=== PATIENT | female | born 1955 | race African-American/Black ===

== ENCOUNTER → 2019-01-25 | Outpatient (CLI) | payer MEDICARE ==
[~2019-01-25] MED LIST: ACET325T82 PO; AMLO5TAB13 PO; CARV12.544 PO; DIAZ10TA3 PO; INSU1.2I SC; LACT10SO66 PO; LORA-654 PO; METH2.5T3 PO; OXY10CRT PO; PANT1INJ3 PO; PROM25TA5 PO
[2019-01-25 13:26] LABS: BUN/Creatinine Ratio 12.6; Potassium 3.9 mmol/L (3.5-5.1)
== END | disposition home or self-care (01) ==
LOC: LAB 12:16
PROVIDERS: ATTEND Internal Medicine
DX: I11.0 Hypertensive heart disease with heart failure (principal); I50.9 Heart failure, unspecified
CPT/HCPCS: 36415; 80048; 83880

== ENCOUNTER → 2019-03-08 | Outpatient (CLI) | payer MEDICARE ==
[~2019-03-08] MED LIST changes: -AMLO5TAB13 PO; +AMLO5TAB15 PO; +FURO20TA3 PO; -LACT10SO66 PO; +LACT10SO70 PO; -LORA-654 PO; +LORA0.5T12 PO; +LOSA-69 PO
[2019-03-08 12:15] LABS: Potassium 4.2 mmol/L (3.5-5.1)
[2019-03-08 12:23] LABS: BUN/Creatinine Ratio 11.4; Calcium 8.4 mg/dL (8.5-10.1); Magnesium 2.1 mg/dL (1.6-2.6)
== END | disposition home or self-care (01) ==
LOC: LAB 10:37
PROVIDERS: ATTEND Internal Medicine
DX: D86.9 Sarcoidosis, unspecified (principal); E11.9 Type 2 diabetes mellitus without complications; E78.5 Hyperlipidemia, unspecified
CPT/HCPCS: 36415; 80048; 82043; 83735

== ENCOUNTER → 2019-03-08 | Outpatient (CLI) | payer MEDICARE | END | disposition home or self-care (01) | LOC: XYW 11:06 | PROVIDERS: ATTEND Internal Medicine | DX: I07.1 Rheumatic tricuspid insufficiency (principal); I11.0 Hypertensive heart disease with heart failure; I50.9 Heart failure, unspecified | CPT/HCPCS: 93306 ==

== ENCOUNTER 2019-03-28 12:10 | Inpatient (IN) | payer MEDICARE, MEDICAID ==
[~2019-03-28] VITALS: Ht 157.5 cm; Wt 80.0 kg
[~2019-03-28 12:10] MED LIST changes: -ACET325T82 PO; -OXY10CRT PO
[2019-03-28 13:33] LABS: Basophils # (auto) 0.1 uL; Basophils % (auto) 0.5 % (0.0-2.0); Eosinophils # (auto) 0.2 uL; Eosinophils % (auto) 0.7 % (0.0-7.0); Hematocrit 31.3 % (36.0-46.0); Hemoglobin 10.1 g/dL (12.2-16.2); Lymphocytes # (auto) 1.4 uL; Lymphocytes % (auto) 6.4 % (10.0-50.0); Mean Corpuscular Hemoglobin 27.9 pg (28.0-32.0); Mean Corpuscular Hgb Conc. 32.2 g/dL (32.0-36.0); Mean Corpuscular Volume 86.5 fL (80.0-100.0); Monocytes # (auto) 0.9 uL; Monocytes % (auto) 4.2 % (0.0-12.0); Neutrophils # (auto) 19.6 uL; Neutrophils % (auto) 88.2 % (37.0-80.0); Platelet Count (auto) 207 10^3/uL (140-450); Red Blood Cells 3.62 10^6/uL (4.0-5.20); Red Cell Distribution Width 13.9 % (11.8-14.3); White Blood Cell 22.3 10^3/uL (4.4-10.8)
[2019-03-28 13:50] LABS: INR < 0.93 (0.9-1.15); Partial Thromboplastin Time 23.1 sec (23.64-32.05)
[2019-03-28 13:58] LABS: Alanine Aminotransferase 21 U/L (13-56); Albumin 2.3 g/dL (3.4-5.0); Anion Gap 9 (5-15); Aspartate Aminotransferase 17 U/L (15-37); Blood Urea Nitrogen 44 mg/dL (7-18); Calcium 7.9 mg/dL (8.5-10.1); Carbon Dioxide 22 mmol/L (21-32); Chloride 107 mmol/L (98-107); Glucose 309 mg/dL (74-106); Potassium 4.4 mmol/L (3.5-5.1); Sodium 138 mmol/L (136-145)
[2019-03-28 14:03] LABS: Alkaline Phosphatase 188 U/L (45-117); BUN/Creatinine Ratio 17.5; Bilirubin, Total 0.2 mg/dL (0.2-1.0); GFR African American 25 mL/min; GFR Non-African American 21 mL/min; Total Protein 6.1 g/dL (6.4-8.2)
[2019-03-28] MEDS ORDERED: MORPHINE SULFATE 4 MG/ML SYR/VIAL IV PRN (15:15)
[2019-03-28] MEDS ORDERED: ONDANSETRON HCL 4 MG/2 ML VIAL IV PRN (15:15)
[2019-03-28] MEDS ORDERED: cefTRIAXone 1GM/50ML D5W 50 ML IV ONE (15:15)
[2019-03-28] MEDS ORDERED: FUROSEMIDE 40 MG/4 ML VIAL IV ONE (15:15)
[2019-03-28] MEDS ORDERED: HYDROcodone-ACET 5/325MG TAB PO PRN (15:15)
[2019-03-28] MEDS ORDERED: MORPHINE SULF INJ 2 MG/ML SYRINGE 1ML IV PRN (15:15)
[2019-03-28] MEDS ORDERED: DEXTROSE (50%) 50ML SYRG IV PRN (15:15)
[2019-03-28] MEDS ORDERED: NITROGLYCERIN 0.4 MG SL TAB SL PRN (15:15)
[2019-03-28 17:11] LABS: Urine Bacteria NONE SEEN /hpf (None Seen); Urine Blood TRACE /uL (Negative); Urine Specific Gravity 1.005 (1.001-1.035); Urine WBC 1 /hpf (0 - 5)
[2019-03-28] MEDS: ACCU-CHEK COMFORT CURVE STRIP VI SCH ×2 (17:11→22:00)
[2019-03-28] MEDS: InsuLIN REG 1unit/0.01ml Soln (100units/ml) SC SCH ×2 (17:16→22:00)
[2019-03-28] MEDS: IPRATROPIUM BROM 0.5 MG/2.5ML INH SOL NEB SCH (18:10)
[2019-03-28] MEDS: ALBUTEROL SULF 2.5 MG/0.5ML(0.5%) NEB SOLN NEB SCH (18:10)
[2019-03-28] MEDS: CARVEDILOL 3.125 MG TAB PO SCH (22:00)
[2019-03-29] VITALS (7 sets, daily range): BP systolic 119–154; BP diastolic 67–78
[2019-03-29 04:34] LABS: Basophils # (auto) 0.1 uL; Basophils % (auto) 0.4 % (0.0-2.0); Eosinophils # (auto) 0.1 uL; Eosinophils % (auto) 0.8 % (0.0-7.0); Hematocrit 29.9 % (36.0-46.0); Hemoglobin 9.9 g/dL (12.2-16.2); Lymphocytes # (auto) 3.1 uL; Lymphocytes % (auto) 17.4 % (10.0-50.0); Mean Corpuscular Hemoglobin 28.9 pg (28.0-32.0); Mean Corpuscular Hgb Conc. 33.1 g/dL (32.0-36.0); Mean Corpuscular Volume 87.3 fL (80.0-100.0); Monocytes % (auto) 5.5 % (0.0-12.0); Neutrophils # (auto) 13.5 uL; Neutrophils % (auto) 75.9 % (37.0-80.0); Nucleated Red Blood Cells % 0.1 %; Platelet Count (auto) 192 10^3/uL (140-450); Red Blood Cells 3.43 10^6/uL (4.0-5.20); Red Cell Distribution Width 14.1 % (11.8-14.3); White Blood Cell 17.8 10^3/uL (4.4-10.8)
[2019-03-29 04:49] LABS: BUN/Creatinine Ratio 18.5; Calcium 7.5 mg/dL (8.5-10.1); Potassium 4.4 mmol/L (3.5-5.1)
[2019-03-29] MEDS: IPRATROPIUM BROM 0.5 MG/2.5ML INH SOL NEB SCH ×3 (05:51→18:28)
[2019-03-29] MEDS: ALBUTEROL SULF 2.5 MG/0.5ML(0.5%) NEB SOLN NEB SCH ×3 (05:52→18:28)
[2019-03-29] MEDS: InsuLIN REG 1unit/0.01ml Soln (100units/ml) SC SCH ×4 (06:33→21:49)
[2019-03-29] MEDS: ACCU-CHEK COMFORT CURVE STRIP VI SCH ×4 (06:33→21:50)
--- NOTE | 2019-03-29 08:05 | NUR ---
PATIENT ARRIVED PATIENT ARRIVED ON UNIT VIA WHEELCHAIR. PATIENT ON 2 L NC WITH NO C/O PAIN OR DISTRESS. PATIENT ORIENTED TO UNIT, PLACED IN BED IN LOW POSITION, BRAKES APPLIED, BED RAILS UP X2 AND CALL LIGHT WITHIN REACH. PATIENT EDUCATED ON POC AND CALL LIGHT USE PRN, PATIENT VERBALIZED UNDERSTANDING. CONTINUING TO MONITOR Q1 HR AND PRN
[2019-03-29] MEDS: PANTOPRAZOLE 40 MG TAB PO SCH (10:00)
[2019-03-29] MEDS: CARVEDILOL 3.125 MG TAB PO SCH ×3 (10:00→22:00)
[2019-03-29] MEDS: ENOXAPARIN SOD 30 MG/0.3 ML SYRINGE SC SCH (10:00)
[2019-03-29] MEDS: cefTRIAXone 1GM/50ML D5W 50 ML IV SCH (10:00)
[2019-03-29] MEDS: FUROSEMIDE 40 MG/4 ML VIAL IV SCH (10:00)
--- NOTE | 2019-03-29 15:42 | NUR ---
ROUNDS PATIENT RESTING IN BED, MOTHER AT BED SIDE. NO S/S OF DISTRESS NOTED AT THIS TIME, CONTINUING TO MONITOR PATIENT Addendum: 03/29/19 at 1552 by JERRY LINDSEY RN RN MIKE AT [facility]
[2019-03-29] MEDS: INSULIN LANTUS (GLARGINE) 1 /0.01ml (100units/ml) SC SCH (21:49)
[2019-03-29] MEDS: LORazepam 0.5 MG TAB PO PRN (21:59)
[2019-03-30 05:00] VITALS: BP 150/71
[2019-03-30] MEDS: IPRATROPIUM BROM 0.5 MG/2.5ML INH SOL NEB SCH ×3 (06:15→18:02)
[2019-03-30] MEDS: ALBUTEROL SULF 2.5 MG/0.5ML(0.5%) NEB SOLN NEB SCH ×3 (06:15→18:02)
[2019-03-30] MEDS: InsuLIN REG 1unit/0.01ml Soln (100units/ml) SC SCH ×4 (06:17→21:50)
[2019-03-30] MEDS: ACCU-CHEK COMFORT CURVE STRIP VI SCH ×4 (06:18→21:50)
[2019-03-30 06:53] LABS: Basophils # (auto) 0.1 uL; Basophils % (auto) 1.1 % (0.0-2.0); Eosinophils # (auto) 0.3 uL; Eosinophils % (auto) 2.6 % (0.0-7.0); Hematocrit 29.3 % (36.0-46.0); Hemoglobin 9.7 g/dL (12.2-16.2); Lymphocytes # (auto) 3.8 uL; Lymphocytes % (auto) 35.9 % (10.0-50.0); Mean Corpuscular Hemoglobin 29.3 pg (28.0-32.0); Mean Corpuscular Volume 88.8 fL (80.0-100.0); Monocytes # (auto) 0.8 uL; Monocytes % (auto) 7.4 % (0.0-12.0); Neutrophils # (auto) 5.6 uL; Nucleated Red Blood Cells % 0.1 %; Platelet Count (auto) 163 10^3/uL (140-450); Red Cell Distribution Width 14.3 % (11.8-14.3); White Blood Cell 10.5 10^3/uL (4.4-10.8)
[2019-03-30 07:11] LABS: BUN/Creatinine Ratio 16.9; Calcium 7.5 mg/dL (8.5-10.1); Potassium 4.7 mmol/L (3.5-5.1)
--- NOTE | 2019-03-30 08:00 | NUR ---
Opening Shift Note Assumed care of patient, awake and alert. No S/S of distress/SOB or pain. Instructed on POC and to call for assist PRN, will continue to monitor for changes Q1hr and PRN.
[2019-03-30 09:00] VITALS: BP 160/62
[2019-03-30] MEDS: cefTRIAXone 1GM/50ML D5W 50 ML IV SCH (09:02)
[2019-03-30] MEDS: PANTOPRAZOLE 40 MG TAB PO SCH (09:03)
[2019-03-30] MEDS: amLODIPine BESYLATE 5 MG TAB PO SCH (09:04)
[2019-03-30] MEDS: CARVEDILOL 3.125 MG TAB PO SCH ×2 (09:04→21:49)
[2019-03-30] MEDS: ENOXAPARIN SOD 30 MG/0.3 ML SYRINGE SC SCH (09:04)
[2019-03-30] MEDS: FUROSEMIDE 40 MG/4 ML VIAL IV SCH (09:05)
[2019-03-30] MEDS ORDERED: FUROSEMIDE 40 MG/4 ML VIAL IV ONE (10:15)
[2019-03-30 13:00] VITALS: BP 137/62
--- NOTE | 2019-03-30 13:00 | NUR ---
IV removal IV infiltrated on right antecubital. IV DC'd with clean sterile technique, catheter fully intact. Pressure dressing applied to site. Patient tolerated well.
--- NOTE | 2019-03-30 13:30 | NUR ---
IV insertion IV access obtained, via clean sterile technique by inserting 20 gauge catheter at right forearm after one attempt. IV secured properly. No trauma to site. Patient tolerated well.
[2019-03-30 17:00] VITALS: BP 141/74
--- NOTE | 2019-03-30 19:55 | NUR ---
assumed care, pt. awake, no c/o pain, not in distress.
[2019-03-30 21:00] VITALS: BP 124/65
[2019-03-30] MEDS ORDERED: ERGOCALCIFEROL 50,000 UNIT(1.25MG) CAP PO SCH (21:00)
[2019-03-30] MEDS: INSULIN LANTUS (GLARGINE) 1 /0.01ml (100units/ml) SC SCH (21:50)
[2019-03-30] MEDS: LORazepam 0.5 MG TAB PO PRN (21:58)
[2019-03-31 04:30] VITALS: BP 147/85
[2019-03-31] MEDS: InsuLIN REG 1unit/0.01ml Soln (100units/ml) SC SCH ×4 (06:08→21:28)
[2019-03-31] MEDS: ACCU-CHEK COMFORT CURVE STRIP VI SCH ×4 (06:09→21:29)
[2019-03-31] MEDS: ALBUTEROL SULF 2.5 MG/0.5ML(0.5%) NEB SOLN NEB SCH ×3 (06:43→18:30)
[2019-03-31] MEDS: IPRATROPIUM BROM 0.5 MG/2.5ML INH SOL NEB SCH ×3 (06:43→18:30)
[2019-03-31 07:35] LABS: Calcium 7.5 mg/dL (8.5-10.1); Potassium 4.8 mmol/L (3.5-5.1)
[2019-03-31 07:37] LABS: BUN/Creatinine Ratio 18.3
[2019-03-31 10:03] VITALS: BP 156/78
[2019-03-31] MEDS: cefTRIAXone 1GM/50ML D5W 50 ML IV SCH (10:04)
[2019-03-31] MEDS: CARVEDILOL 3.125 MG TAB PO SCH ×2 (10:05→21:28)
[2019-03-31] MEDS: amLODIPine BESYLATE 5 MG TAB PO SCH (10:05)
[2019-03-31] MEDS: PANTOPRAZOLE 40 MG TAB PO SCH (10:06)
[2019-03-31] MEDS: FUROSEMIDE 40 MG/4 ML VIAL IV SCH ×2 (10:06→17:46)
[2019-03-31] MEDS: ENOXAPARIN SOD 30 MG/0.3 ML SYRINGE SC SCH (10:06)
--- NOTE | 2019-03-31 12:25 | NUR ---
Nutrition Assessment Notes please see attached link for complete assessment Est. Needs ABW 65 [id number] kcal (23-25 kcal/kgBW), 52-65 gms pro (0.8-1.0 gms/kgBW d/t elev RFT CKD ). Will continue to monitor pertinent labs and reassess nutrient need prn. Addendum: 03/31/19 at [address] Amended: Links added.
[2019-03-31 12:59] VITALS: BP 133/61
[2019-03-31 17:00] VITALS: BP 124/70
--- NOTE | 2019-03-31 19:45 | NUR ---
ASSUMED CARE, PT. AWAKE, NO C/O PAIN, NO SOB.
[2019-03-31 19:58] VITALS: BP 124/70
[2019-03-31] MEDS: INSULIN LANTUS (GLARGINE) 1 /0.01ml (100units/ml) SC SCH (21:29)
[2019-03-31 22:00] VITALS: BP 122/69
[2019-04-01 04:49] VITALS: BP 146/75
[2019-04-01 05:30] LABS: BUN/Creatinine Ratio 20.4; Calcium 7.6 mg/dL (8.5-10.1); Potassium 4.6 mmol/L (3.5-5.1)
[2019-04-01] MEDS: FUROSEMIDE 40 MG/4 ML VIAL IV SCH ×2 (05:36→18:03)
[2019-04-01] MEDS: IPRATROPIUM BROM 0.5 MG/2.5ML INH SOL NEB SCH ×3 (05:54→19:50)
[2019-04-01] MEDS: ALBUTEROL SULF 2.5 MG/0.5ML(0.5%) NEB SOLN NEB SCH ×3 (05:54→19:50)
[2019-04-01] MEDS: InsuLIN REG 1unit/0.01ml Soln (100units/ml) SC SCH ×4 (06:10→22:32)
[2019-04-01] MEDS: ACCU-CHEK COMFORT CURVE STRIP VI SCH ×4 (06:11→22:32)
[2019-04-01 08:00] VITALS: BP 134/65
[2019-04-01] MEDS: cefTRIAXone 1GM/50ML D5W 50 ML IV SCH (09:37)
[2019-04-01] MEDS: PANTOPRAZOLE 40 MG TAB PO SCH (09:37)
[2019-04-01] MEDS: ENOXAPARIN SOD 30 MG/0.3 ML SYRINGE SC SCH (09:37)
[2019-04-01] MEDS: CARVEDILOL 3.125 MG TAB PO SCH ×2 (09:38→22:32)
[2019-04-01] MEDS: amLODIPine BESYLATE 5 MG TAB PO SCH (09:39)
[2019-04-01 13:57] VITALS: BP 142/70
[2019-04-01 17:17] VITALS: BP 120/60
[2019-04-01 20:00] VITALS: BP 129/74
--- NOTE | 2019-04-01 20:00 | NUR ---
Opening Shift Note Assumed care of patient, awake, alert and oriented x 4. No S/S of distress/SOB or pain. On 2L oxygen via nasal cannula. Ambulatory to bedside commode. Walker, O2 tank, and prosthetic at bedside. Bed in lowest locked position, side rails up x 2, call light within reach. Instructed on POC and to call for assist PRN, will continue to monitor for changes Q1hr and PRN.
[2019-04-01 22:00] VITALS: BP 129/74
[2019-04-01] MEDS: INSULIN LANTUS (GLARGINE) 1 /0.01ml (100units/ml) SC SCH (22:32)
[2019-04-02 05:39] VITALS: BP 122/74
[2019-04-02] MEDS: FUROSEMIDE 40 MG/4 ML VIAL IV SCH (06:23)
[2019-04-02] MEDS: InsuLIN REG 1unit/0.01ml Soln (100units/ml) SC SCH (06:23)
[2019-04-02] MEDS: ACCU-CHEK COMFORT CURVE STRIP VI SCH (06:23)
[2019-04-02] MEDS: ALBUTEROL SULF 2.5 MG/0.5ML(0.5%) NEB SOLN NEB SCH ×2 (06:39→12:33)
[2019-04-02] MEDS: IPRATROPIUM BROM 0.5 MG/2.5ML INH SOL NEB SCH ×2 (06:39→12:33)
--- NOTE | 2019-04-02 07:16 | NUR ---
Endorsed care to dayshift GONZALES Russell. Patient resting in bed, no S/S of SOB or distress noted.
--- NOTE | 2019-04-02 07:30 | NUR ---
O2 sat on room air-98%. Will continue to monitor.
[2019-04-02 08:35] LABS: BUN/Creatinine Ratio 18.5; Calcium 8.4 mg/dL (8.5-10.1); Potassium 4.5 mmol/L (3.5-5.1)
[2019-04-02] MEDS: cefTRIAXone 1GM/50ML D5W 50 ML IV SCH (09:16)
[2019-04-02] MEDS: ENOXAPARIN SOD 30 MG/0.3 ML SYRINGE SC SCH (09:16)
[2019-04-02] MEDS: PANTOPRAZOLE 40 MG TAB PO SCH (09:17)
[2019-04-02] MEDS: amLODIPine BESYLATE 5 MG TAB PO SCH (09:17)
[2019-04-02] MEDS: CARVEDILOL 3.125 MG TAB PO SCH (09:18)
[2019-04-02 09:21] VITALS: BP 139/68
--- NOTE | 2019-04-02 10:00 | NUR ---
O2 sat on room air-97%-98%. No complaints of SOB/chest pain.
[2019-04-02 11:08] VITALS: BP 139/68
--- NOTE | 2019-04-02 15:00 | NUR ---
Discharge instructions given as ordered. Encourage to follow up with PMD Dr. Brock on 04/18/19 at 1:40pm #[phone] located at [address] [place] [address] as instructed. Patient to make an appointment with Dr. Chao hardwood finisher in 1 week. All questions and concerns addressed. Patient verbalized understanding. Medication reconciliation form completed and copy given to patient. IV removed with catheter intact, pressure dressing applied. Telemetry unit returned to [facility]. Patient taken to vehicle via wheelchair with all personal belongings, accompanied by staff and family member. No distress noted at time of departure.
== END 2019-04-02 15:00 | disposition home or self-care (01) | DRG 871 ==
LOC: ER 12:10 → TELE 12:11 → TELE-CENTR 03-29 08:21
PROVIDERS: ADMIT Internal Medicine; ATTEND Internal Medicine
DX: A41.9 Sepsis, unspecified organism (principal); I50.43 Acute on chronic combined systolic (congestive) and diastolic (congestive) heart failure; I13.0 Hypertensive heart and chronic kidney disease with heart failure and stage 1 through stage 4 chronic kidney disease, or unspecified chronic kidney disease; J96.10 Chronic respiratory failure, unspecified whether with hypoxia or hypercapnia; N17.9 Acute kidney failure, unspecified; N18.4 Chronic kidney disease, stage 4 (severe); N25.81 Secondary hyperparathyroidism of renal origin; L03.115 Cellulitis of right lower limb; E66.9 Obesity, unspecified; D86.9 Sarcoidosis, unspecified; E11.22 Type 2 diabetes mellitus with diabetic chronic kidney disease; M32.9 Systemic lupus erythematosus, unspecified; E11.21 Type 2 diabetes mellitus with diabetic nephropathy; E55.9 Vitamin D deficiency, unspecified; I48.91 Unspecified atrial fibrillation; J44.9 Chronic obstructive pulmonary disease, unspecified; Z89.612 Acquired absence of left leg above knee; Z83.2 Family history of diseases of the blood and blood-forming organs and certain disorders involving the immune mechanism; Z86.73 Personal history of transient ischemic attack (TIA), and cerebral infarction without residual deficits; Z90.710 Acquired absence of both cervix and uterus; Z99.81 Dependence on supplemental oxygen; Z88.0 Allergy status to penicillin; Z88.2 Allergy status to sulfonamides; Z91.040 Latex allergy status; Z90.49 Acquired absence of other specified parts of digestive tract; Z99.3 Dependence on wheelchair; Z68.32 Body mass index [BMI] 32.0-32.9, adult; Z79.84 Long term (current) use of oral hypoglycemic drugs
CPT/HCPCS: 36415; 71045; 80048; 80053; 81001; 82962; 83880; 84100; 84484; 85025; 85610; 85730; 87081; 93005; 93971; 94640; 96365; 96366; 96375; 97110; 97116; 97530; G0378; J0696; J1815; J2405

== ENCOUNTER 2019-04-14 13:16 | Inpatient (IN) | payer MEDICARE, MEDICAID | END 2019-04-21 17:04 | disposition home or self-care (01) | LOC: ER 13:16 → TELE-WESTW 04-21 09:00 → TELE 13:17 → TELE-WESTW 23:38 | PROC: B2111ZZ Fluoroscopy of Multiple Coronary Arteries using Low Osmolar Contrast (ICD-10-PCS; principal; ~2019-04-14) | DX: R07.9 Chest pain, unspecified (principal); E87.1 Hypo-osmolality and hyponatremia; E44.0 Moderate protein-calorie malnutrition; N18.4 Chronic kidney disease, stage 4 (severe); I13.0 Hypertensive heart and chronic kidney disease with heart failure and stage 1 through stage 4 chronic kidney disease, or unspecified chronic kidney disease; N17.9 Acute kidney failure, unspecified; N04.9 Nephrotic syndrome with unspecified morphologic changes; N25.81 Secondary hyperparathyroidism of renal origin; Z89.612 Acquired absence of left leg above knee; E10.65 Type 1 diabetes mellitus with hyperglycemia; E10.22 Type 1 diabetes mellitus with diabetic chronic kidney disease; I50.9 Heart failure, unspecified; D86.9 Sarcoidosis, unspecified; M32.9 Systemic lupus erythematosus, unspecified; R80.9 Proteinuria, unspecified ==

== ENCOUNTER → 2019-04-25 | Outpatient (CLI) | payer MEDICARE, MEDICAID ==
[~2019-04-25] MED LIST changes: +ACET-1156 PO; +ASPITAB34 OR; -DIAZ10TA3 PO; +FURO1TAB31 PO; +FURO1TAB33 PO; -FURO20TA3 PO; -LACT10SO70 PO; -LOSA-69 PO; -METH2.5T3 PO; -PANT1INJ3 PO; -PROM25TA5 PO
[2019-04-25 13:41] LABS: BUN/Creatinine Ratio 10.4; Calcium 8.6 mg/dL (8.5-10.1); Potassium 4.3 mmol/L (3.5-5.1)
== END | disposition home or self-care (01) ==
LOC: LAB 11:38
PROVIDERS: ATTEND Internal Medicine Nephrology
DX: I13.0 Hypertensive heart and chronic kidney disease with heart failure and stage 1 through stage 4 chronic kidney disease, or unspecified chronic kidney disease (principal); E11.22 Type 2 diabetes mellitus with diabetic chronic kidney disease; N18.4 Chronic kidney disease, stage 4 (severe); I50.9 Heart failure, unspecified
CPT/HCPCS: 36415; 80048

== ENCOUNTER → 2019-04-26 | Outpatient (CLI) | payer MEDICARE, MEDICAID | END | disposition home or self-care (01) | LOC: XY 08:33 | PROVIDERS: ATTEND Internal Medicine | DX: R07.9 Chest pain, unspecified (principal); R06.02 Shortness of breath; I11.0 Hypertensive heart disease with heart failure; I50.9 Heart failure, unspecified | CPT/HCPCS: 78582; A9540; A9558 ==

== ENCOUNTER 2019-06-06 17:40 | Emergency (ER) | payer MEDICARE, MEDICAID ==
[~2019-06-06] VITALS: Ht 157.5 cm; Wt 72.6 kg
[2019-06-06 17:44] VITALS: BP 177/84
[2019-06-06 19:02] LABS: Basophils # (auto) 0.1 uL; Eosinophils # (auto) 0.4 uL; Eosinophils % (auto) 3.4 % (0.0-7.0); Hematocrit 37.4 % (36.0-46.0); Hemoglobin 12.4 g/dL (12.2-16.2); Lymphocytes # (auto) 2.8 uL; Lymphocytes % (auto) 27.8 % (10.0-50.0); Mean Corpuscular Hemoglobin 27.8 pg (28.0-32.0); Mean Corpuscular Hgb Conc. 33.3 g/dL (32.0-36.0); Mean Corpuscular Volume 83.6 fL (80.0-100.0); Monocytes # (auto) 0.7 uL; Monocytes % (auto) 6.8 % (0.0-12.0); Neutrophils # (auto) 6.3 uL; Nucleated Red Blood Cells % 0.1 %; Platelet Count (auto) 273 10^3/uL (140-450); Red Blood Cells 4.47 10^6/uL (4.0-5.20); Red Cell Distribution Width 13.4 % (11.8-14.3); White Blood Cell 10.3 10^3/uL (4.4-10.8)
[2019-06-06 19:15] LABS: INR < 0.93 (0.9-1.15); Partial Thromboplastin Time 25.4 sec (23.64-32.05)
[2019-06-06 19:23] LABS: Alanine Aminotransferase 20 U/L (13-56); Albumin 2.6 g/dL (3.4-5.0); Anion Gap 8 (5-15); Aspartate Aminotransferase 14 U/L (15-37); Blood Urea Nitrogen 25 mg/dL (7-18); Calcium 7.9 mg/dL (8.5-10.1); Carbon Dioxide 25 mmol/L (21-32); Chloride 104 mmol/L (98-107); Sodium 137 mmol/L (136-145)
[2019-06-06 19:27] LABS: Alkaline Phosphatase 274 U/L (45-117); BUN/Creatinine Ratio 11.2; Bilirubin, Total 0.2 mg/dL (0.2-1.0); GFR African American 28 mL/min; GFR Non-African American 23 mL/min; Total Protein 6.9 g/dL (6.4-8.2)
[2019-06-06 20:07] LABS: Glucose 437 mg/dL (74-106)
== END 2019-06-06 19:23 | disposition left against medical advice (07) ==
LOC: ER 17:40
DX: R73.9 Hyperglycemia, unspecified (principal); R07.89 Other chest pain; R06.02 Shortness of breath; Z53.21 Procedure and treatment not carried out due to patient leaving prior to being seen by health care provider
CPT/HCPCS: 36415; 71045; 80053; 82962; 83880; 84484; 85025; 85610; 85730; 93005

== ENCOUNTER → 2019-06-06 | Outpatient (CLI) | payer MEDICARE, MEDICAID ==
[2019-06-06 16:13] LABS: BUN/Creatinine Ratio 11.6; Calcium 7.4 mg/dL (8.5-10.1); Potassium 4.4 mmol/L (3.5-5.1)
== END | disposition home or self-care (01) ==
LOC: LAB 15:17
PROVIDERS: ATTEND Internal Medicine Nephrology
DX: N18.4 Chronic kidney disease, stage 4 (severe) (principal)
CPT/HCPCS: 36415; 80048

== ENCOUNTER → 2019-07-10 | Outpatient (CLI) | payer MEDICARE, MEDICAID | END | disposition home or self-care (01) | LOC: LAB 14:29 | PROVIDERS: ATTEND Internal Medicine | DX: E11.9 Type 2 diabetes mellitus without complications (principal) | CPT/HCPCS: 36415; 83036 ==

== ENCOUNTER → 2019-09-04 | Outpatient (CLI) | payer MEDICARE ==
[2019-09-04 16:18] LABS: BUN/Creatinine Ratio 11.6; Calcium 8.1 mg/dL (8.5-10.1); Potassium 4.3 mmol/L (3.5-5.1)
== END | disposition home or self-care (01) ==
LOC: LAB 15:31
PROVIDERS: ATTEND Internal Medicine Nephrology
DX: E11.22 Type 2 diabetes mellitus with diabetic chronic kidney disease (principal); N18.3 Chronic kidney disease, stage 3 (moderate); I50.32 Chronic diastolic (congestive) heart failure; E11.319 Type 2 diabetes mellitus with unspecified diabetic retinopathy without macular edema; I48.0 Paroxysmal atrial fibrillation
CPT/HCPCS: 36415; 80048; 83735; 83880

== ENCOUNTER → 2019-10-10 | Outpatient (CLI) | payer MEDICARE ==
[2019-10-10 12:40] LABS: Calcium 8.7 mg/dL (8.5-10.1); Potassium 4.3 mmol/L (3.5-5.1)
[2019-10-10 12:42] LABS: BUN/Creatinine Ratio 10.1
== END | disposition home or self-care (01) ==
LOC: LAB 11:22
PROVIDERS: ATTEND Internal Medicine
DX: I11.0 Hypertensive heart disease with heart failure (principal); I50.30 Unspecified diastolic (congestive) heart failure; E11.8 Type 2 diabetes mellitus with unspecified complications
CPT/HCPCS: 36415; 80048; 83880

== ENCOUNTER → 2019-11-03 | Outpatient (CLI) | payer MEDICARE ==
[2019-11-03 14:42] LABS: BUN/Creatinine Ratio 10.6; Calcium 8.5 mg/dL (8.5-10.1); Potassium 4.2 mmol/L (3.5-5.1)
== END | disposition home or self-care (01) ==
LOC: LAB 14:03
PROVIDERS: ATTEND Internal Medicine
DX: I11.0 Hypertensive heart disease with heart failure (principal); I50.30 Unspecified diastolic (congestive) heart failure; R60.1 Generalized edema
CPT/HCPCS: 36415; 80048; 83880

== ENCOUNTER → 2019-11-29 | Outpatient (CLI) | payer MEDICARE ==
[2019-11-29 10:19] LABS: BUN/Creatinine Ratio 13.9; Calcium 8.4 mg/dL (8.5-10.1); Potassium 4.4 mmol/L (3.5-5.1)
== END | disposition home or self-care (01) ==
LOC: LAB 09:12
PROVIDERS: ATTEND Internal Medicine
DX: E11.22 Type 2 diabetes mellitus with diabetic chronic kidney disease (principal); I11.0 Hypertensive heart disease with heart failure; I50.32 Chronic diastolic (congestive) heart failure
CPT/HCPCS: 36415; 80048; 83880

== ENCOUNTER 2019-12-04 16:06 | Inpatient (IN) | payer MEDICARE, MEDICAID ==
[~2019-12-04] VITALS: Ht 157.5 cm; Wt 85.5 kg
[~2019-12-04 16:06] MED LIST changes: -ASPITAB34 OR; +ASPITAB34 PO
[2019-12-04] MEDS ORDERED: ACETAMINOPHEN 325 MG TAB PO ONE ×2 (16:37→16:45)
[2019-12-04] MEDS ORDERED: FUROSEMIDE 40 MG/4 ML VIAL IV ONE (16:45)
[2019-12-04] MEDS ORDERED: AZITHROMYCIN 500MG/ 250ML 250 ML IV ONE ×2 (16:45→16:47)
[2019-12-04 17:40] LABS: Basophils # (auto) 0.1 10 ^3/uL (0-0.2); Eosinophils # (auto) 0.5 10 ^3/uL (0-0.8); Hematocrit 39.2 % (36.0-46.0); Hemoglobin 12.8 g/dL (12.2-16.2); Lymphocytes # (auto) 3.7 10 ^3/uL (0.4-5.4); Mean Corpuscular Hemoglobin 27.1 pg (28.0-32.0); Mean Corpuscular Hgb Conc. 32.6 g/dL (32.0-36.0); Mean Corpuscular Volume 83.3 fL (80.0-100.0); Monocytes # (auto) 0.9 10 ^3/uL (0-1.3); Monocytes % (auto) 7.9 % (0.0-12.0); Neutrophils # (auto) 6.7 10 ^3/uL (1.6-8.6); Neutrophils % (auto) 56.1 % (37.0-80.0); Platelet Count (auto) 287 10^3/uL (140-450); Red Blood Cells 4.71 10^6/uL (4.0-5.20); Red Cell Distribution Width 13.4 % (11.8-14.3); White Blood Cell 11.9 10^3/uL (4.4-10.8)
[2019-12-04 17:42] LABS: Albumin 2.7 g/dL (3.4-5.0); Anion Gap 8 (5-15); Blood Urea Nitrogen 39 mg/dL (7-18); Calcium 8.7 mg/dL (8.5-10.1); Carbon Dioxide 23 mmol/L (21-32); Chloride 108 mmol/L (98-107); Glucose 241 mg/dL (74-106); Magnesium 2.1 mg/dL (1.6-2.6); Potassium 4.6 mmol/L (3.5-5.1); Sodium 139 mmol/L (136-145)
[2019-12-04 17:48] LABS: Alanine Aminotransferase 25 U/L (13-56); Alkaline Phosphatase 167 U/L (45-117); Aspartate Aminotransferase 19 U/L (15-37); BUN/Creatinine Ratio 12.4; Bilirubin, Total 0.2 mg/dL (0.2-1.0); GFR African American 19 mL/min; GFR Non-African American 16 mL/min; Total Protein 7.6 g/dL (6.4-8.2)
[2019-12-04 17:52] LABS: CRP High Sensitivity 0.16 mg/dL (< 0.3)
[2019-12-04] MEDS ORDERED: ACETAMINOPHEN 500 MG TAB PO PRN (18:45)
[2019-12-04] MEDS ORDERED: LORazepam 0.5 MG TAB PO PRN (18:45)
[2019-12-04] MEDS ORDERED: MORPHINE SULF INJ 2 MG/ML SYRINGE 1ML IV PRN (18:45)
[2019-12-04] MEDS ORDERED: NITROGLYCERIN 0.4 MG SL TAB SL PRN (18:45)
[2019-12-04] MEDS ORDERED: ACETAMINOPHEN 325 MG TAB PO PRN (18:45)
[2019-12-04] MEDS ORDERED: DEXTROSE (50%) 50ML SYRG IV PRN (19:00)
--- NOTE | 2019-12-04 20:15 | NUR ---
Telemetry admit from ER BENTLEYJAYCE admitted to Telemetry unit after SBAR received. Patient oriented to YAZAN PIERRE, RN primary RN, unit, room, bed, and unit policies regarding patient care and visiting hours. Patient now on continuous telemetry monitoring, tele box #3 and telemetry reading on arrival to unit is SR. Patient weighed by bedscale and encouraged to call if they need something. All questions and concerns addressed, patient verbalized understanding.
[2019-12-04 20:20] VITALS: BP 158/85
--- NOTE | 2019-12-04 21:00 | NUR ---
Code status Patient requesting to be DNR. Informed patient current code status is Full code until physician can speak to her and verify. Will endorse to yenny ROLON.
[2019-12-04] MEDS ORDERED: ALBUTEROL SULF HFA 90MCG INH 200DOSE IN SCH (22:00)
--- NOTE | 2019-12-04 22:00 | NUR ---
Respiratory note: PT SEEN FOR SCHEDULED MDI TREATMENT, PT REFUSED AT THIS TIME. PT STATED THAT THEY DO NOT WORK ON HER. NO DISTRESS NOTED AT THIS TIME. HR 67 RR 18 POX 98% ON ROOM AIR. MDI NOT IN ROOM.
[2019-12-04] MEDS: ACCU-CHEK COMFORT CURVE STRIP VI SCH (23:40)
[2019-12-04] MEDS: InsuLIN REG 1unit/0.01ml Soln (100units/ml) SC SCH (23:50)
[2019-12-04] MEDS: CARVEDILOL 12.5 MG TAB PO SCH (23:58)
[2019-12-05] VITALS (9 sets, daily range): BP systolic 103–180; BP diastolic 67–97
[2019-12-05] MEDS ORDERED: LEVE500T22 PO (04:10)
--- NOTE | 2019-12-05 05:13 | NUR ---
Medication Patient medication reconciliation performed by Alistair Mcfadden NP during ED admission. Patient did not bring medications. Patient states she takes Keppra but does not know how much.
[2019-12-05] MEDS: ACCU-CHEK COMFORT CURVE STRIP VI SCH ×4 (07:00→21:42)
[2019-12-05] MEDS: InsuLIN REG 1unit/0.01ml Soln (100units/ml) SC SCH ×4 (07:00→21:42)
--- NOTE | 2019-12-05 07:03 | NUR ---
Respiratory note: PT REFUSES TO DO MDI. WANTS A NEBULIZER TX. HR 62, RR 14, SPO2 97% ON 5 L NC BUBBLE HUMIDIFIER INLINE. BS CLEAR. NO SIGNS OR SYMPTOMS OF RESPIRATORY DISTRESS NOTED AT THIS TIME.
--- NOTE | 2019-12-05 07:03 | NUR ---
Respiratory note: MDI DONE BY RN. HR 68, RR 14, SPO2 94% ON RA. BS CLEAR. NO SIGNS OR SYMPTOMS OF RESPIRATORY DISTRESS NOTED AT THIS TIME. Addendum: 12/05/19 at 1304 by PAULA ABARCA RT PLEASE DISREGARD THIS NOTE. WRONG PATIENT.
[2019-12-05 07:22] LABS: Basophils # (auto) 0.1 10 ^3/uL (0-0.2); Basophils % (auto) 0.9 % (0.0-2.0); Eosinophils # (auto) 0.4 10 ^3/uL (0-0.8); Eosinophils % (auto) 4.5 % (0.0-7.0); Hematocrit 38.5 % (36.0-46.0); Hemoglobin 12.7 g/dL (12.2-16.2); Mean Corpuscular Hemoglobin 27.8 pg (28.0-32.0); Mean Corpuscular Hgb Conc. 33.1 g/dL (32.0-36.0); Mean Corpuscular Volume 84.1 fL (80.0-100.0); Monocytes # (auto) 0.9 10 ^3/uL (0-1.3); Neutrophils # (auto) 5.3 10 ^3/uL (1.6-8.6); Neutrophils % (auto) 54.6 % (37.0-80.0); Platelet Count (auto) 268 10^3/uL (140-450); Red Blood Cells 4.57 10^6/uL (4.0-5.20); Red Cell Distribution Width 13.4 % (11.8-14.3); White Blood Cell 9.7 10^3/uL (4.4-10.8)
--- NOTE | 2019-12-05 07:30 | NUR ---
Opening Shift Note Assumed care of patient, awake and alert. No S/S of distress/SOB. Pt denies pain at this time. Bed in lowest and locked position with side rails up x2 and call light in reach. Instructed on POC and to call for assist PRN, will continue to monitor for changes Q1hr and PRN.
[2019-12-05 07:45] LABS: Albumin 2.6 g/dL (3.4-5.0); Calcium 8.7 mg/dL (8.5-10.1); Potassium 4.4 mmol/L (3.5-5.1)
[2019-12-05 07:48] LABS: Bilirubin, Total 0.2 mg/dL (0.2-1.0); Total Protein 7.2 g/dL (6.4-8.2)
[2019-12-05] MEDS: CARVEDILOL 12.5 MG TAB PO SCH ×2 (09:25→21:41)
[2019-12-05] MEDS: FUROSEMIDE 40 MG TAB PO SCH (09:26)
[2019-12-05] MEDS: amLODIPine BESYLATE 5 MG TAB PO SCH (09:26)
[2019-12-05] MEDS: ENOXAPARIN SOD 30 MG/0.3 ML SYRINGE SC SCH (09:27)
[2019-12-05] MEDS ORDERED: CHOLECALCIFEROL (VITD3) 1,000IU=25mCg TAB PO SCH (10:00)
[2019-12-05] MEDS ORDERED: ZINC SULFATE 220mg CAP or TAB PO SCH (10:00)
--- NOTE | 2019-12-05 11:00 | NUR ---
PAGED DR. MCKENZIE REGARDING PATIENTS KEPPRA. AWAITING CALL BACK.
--- NOTE | 2019-12-05 12:15 | NUR ---
KEY PERSON NOTIFIED OF PATIENT COVID-19 RESULTS. AWAITING BED ASSIGNMENT.
--- NOTE | 2019-12-05 12:43 | NUR ---
REPORT GIVEN TO RECEIVING RNSAI.
--- NOTE | 2019-12-05 13:00 | NUR ---
PATIENT TRANSFERRED TO ROOM 284A VIA PATIENT OWN WHEEL CHAIR, ASSISTED BY STAFF. PATIENT TOOK ALL PERSONAL BELONGINGS. NO S/S OF DISTRESS OR SOB AT THIS TIME.
--- NOTE | 2019-12-05 13:30 | NUR ---
Received a patient from [facility], patient awake, alert, oriented x 4 to new room and policies. No respiratory distress noted. Skin is warm and dry to touch. Instructed to call a nurse for assistance. Place a call light within reach. Will continue to monitor.
[2019-12-05] MEDS ORDERED: ACET-1158 PO (14:48)
[2019-12-05] MEDS ORDERED: ASPI-498 PO (14:50)
[2019-12-05] MEDS ORDERED: AMLO10TA13 PO (14:51)
[2019-12-05] MEDS ORDERED: CARV25TA55 PO (14:52)
[2019-12-05] MEDS ORDERED: DIAZ2TAB PO (14:54)
[2019-12-05] MEDS ORDERED: cefTRIAXone 1GM/50ML D5W 50 ML IV ONE (15:15)
[2019-12-05] MEDS ORDERED: INSU1INJ19 SC (15:26)
[2019-12-05] MEDS ORDERED: INSDRIP SC (15:27)
[2019-12-05] MEDS ORDERED: PROM25TA5 PO (15:30)
[2019-12-05] MEDS ORDERED: HYDR-2691 PO (15:31)
--- NOTE | 2019-12-05 17:00 | NUR ---
UA SENT TO THE LAB.
[2019-12-05] MEDS: ALBUTEROL SULF 2.5 MG/0.5ML(0.5%) NEB SOLN NEB SCH (19:06)
--- NOTE | 2019-12-05 19:26 | NUR ---
Opening Shift Note Assumed care of patient, awake and alert x 4. No S/S of distress/SOB or pain. Bed is in lowest position and locked. Call light within reach. Board updated. Tele-box number matches monitor and leads are in correct placement. Instructed on POC and to call for assist PRN, will continue to monitor for changes Q1hr and PRN.
[2019-12-05] MEDS: ACETAMINOPHEN 500 MG TAB PO PRN (20:29)
--- NOTE | 2019-12-05 20:29 | NUR ---
Patient reports pain 7 out of 10 in her lower abdomen. Pain occurs frequently at home and is attributed by patient to kidney disease. Patient states she takes Tylenol at home to ease pain and put her to sleep. Patient does not want stronger medication Will administer Tylenol and continue to assess.
[2019-12-05 20:57] LABS: Urine Amorphous Crystal FEW /hpf (None Seen); Urine Bacteria FEW /hpf (None Seen); Urine Blood 3+ /uL (Negative); Urine Hyaline Cast FEW /lpf (0 - 2); Urine Mucus FEW (None Seen); Urine Specific Gravity 1.012 (1.001-1.035); Urine WBC 53 /hpf (0 - 5); Urine WBC Clumps PRESENT /hpf (None Seen)
[2019-12-05] MEDS: levETIRAcetam 500 MG TAB PO SCH (21:40)
--- NOTE | 2019-12-05 21:57 | NUR ---
Paging hospitalist to request Ativan prescription change and to notify of evidence of UTI. Patient has history of seizures (last seizure was early November). Ativan 0.5 mg PO BID PRN seizure ordered. Request medication be changed to Ativan IV for seizure activity. Patient receiving Keppra and on seizure precautions. Urinalysis revealed evidence of UTI: 3+ leukocytes, bacteria, and hazy color. Urine bacterial culture sent. Patient receiving Rocephin antibiotic. Patient afebrile and vitals WNL. Patient has Servin catheter currently for I&O. Patient states she had symptoms including foul-smelling urine and painful urination prior to arrival and Servin placement. Would Hospitalist like Servin removed?
--- NOTE | 2019-12-05 22:09 | NUR ---
Spoke to MD Iqbal who ordered Ativan 1 mg IV q 5 hrs PRN seizure activity, discontinue PO Lorazepam. Order repeated, verified, and placed.
[2019-12-05] MEDS ORDERED: LORazepam 2MG/ML-1ML VIAL IV PRN (22:15)
--- NOTE | 2019-12-05 23:00 | NUR ---
Servin catheter discontinued Servin discontinued with clean technique following deflation of balloon. 225 mls of urine noted in collection bag. Patient tolerated well with no complaints of pain. Continue care.
--- NOTE | 2019-12-06 04:58 | NUR ---
Patient voided 225 mls of urine, per CARL Ragland. 450 mls of urine total during shift. I performed a bladder scan and discovered 80mls of residual urine. Patient does not feel urge to void yet. Instructed patient to try to void within 2 hours regardless of desire. Will continue to assess.
[2019-12-06 05:00] VITALS: BP 111/67
[2019-12-06] MEDS ORDERED: SODIUM CHLORIDE 0.9 % NEB SOLN 3ML NEB ONE ×2 (05:25→10:59)
[2019-12-06 05:49] LABS: Basophils # (auto) 0.1 10 ^3/uL (0-0.2); Basophils % (auto) 0.6 % (0.0-2.0); Eosinophils # (auto) 0.4 10 ^3/uL (0-0.8); Eosinophils % (auto) 4.1 % (0.0-7.0); Hematocrit 33.5 % (36.0-46.0); Lymphocytes # (auto) 3.2 10 ^3/uL (0.4-5.4); Lymphocytes % (auto) 34.4 % (10.0-50.0); Mean Corpuscular Hemoglobin 27.4 pg (28.0-32.0); Mean Corpuscular Hgb Conc. 32.8 g/dL (32.0-36.0); Mean Corpuscular Volume 83.5 fL (80.0-100.0); Monocytes # (auto) 0.8 10 ^3/uL (0-1.3); Monocytes % (auto) 8.7 % (0.0-12.0); Neutrophils # (auto) 4.8 10 ^3/uL (1.6-8.6); Neutrophils % (auto) 52.2 % (37.0-80.0); Nucleated Red Blood Cells % 0.1 %; Platelet Count (auto) 239 10^3/uL (140-450); Red Blood Cells 4.02 10^6/uL (4.0-5.20); Red Cell Distribution Width 13.4 % (11.8-14.3); White Blood Cell 9.2 10^3/uL (4.4-10.8)
[2019-12-06] MEDS: ACETAMINOPHEN 500 MG TAB PO PRN (05:59)
[2019-12-06] MEDS: InsuLIN REG 1unit/0.01ml Soln (100units/ml) SC SCH ×4 (05:59→22:15)
[2019-12-06] MEDS: ACCU-CHEK COMFORT CURVE STRIP VI SCH ×4 (05:59→21:59)
[2019-12-06 06:04] LABS: BUN/Creatinine Ratio 13.1; Calcium 8.1 mg/dL (8.5-10.1); Potassium 4.5 mmol/L (3.5-5.1)
[2019-12-06] MEDS: ALBUTEROL SULF 2.5 MG/0.5ML(0.5%) NEB SOLN NEB SCH ×3 (06:44→18:30)
[2019-12-06] MEDS: ENOXAPARIN SOD 30 MG/0.3 ML SYRINGE SC SCH (08:54)
[2019-12-06] MEDS: cefTRIAXone 1GM/50ML D5W 50 ML IV SCH (08:54)
[2019-12-06] MEDS: AZITHROMYCIN 250 MG TAB PO SCH (08:55)
[2019-12-06] MEDS: amLODIPine BESYLATE 5 MG TAB PO SCH (08:55)
[2019-12-06] MEDS: CARVEDILOL 12.5 MG TAB PO SCH ×2 (08:56→21:59)
[2019-12-06] MEDS: FUROSEMIDE 40 MG TAB PO SCH (08:56)
[2019-12-06] MEDS: levETIRAcetam 500 MG TAB PO SCH ×2 (08:56→21:58)
[2019-12-06] MEDS: ASPirin 81 mg TAB PO SCH (08:58)
[2019-12-06 09:00] VITALS: BP 125/70
[2019-12-06 13:00] VITALS: BP 137/75
[2019-12-06 17:00] VITALS: BP 142/71
[2019-12-06] MEDS: SODIUM CHLORIDE 0.9% 1,000 ML IV ONE ×2 (19:15→21:58)
--- NOTE | 2019-12-06 19:24 | NUR ---
Opening Shift Note Assumed care of patient, awake and alert x 4. No S/S of distress/SOB. Bed is in lowest position and locked. Call light within reach. Board updated. Tele box number matches monitor and leads are in correct placement. Bedside commode available. Instructed on POC and to call for assist PRN, will continue to monitor for changes Q1hr and PRN.
--- NOTE | 2019-12-06 19:55 | NUR ---
Patient refused 0.9 sodium chloride set at 50 mls/hr x 1 bag. Patient is afraid it will fluid overload her,especially now that Lasix has been discontinued, and she will have increased shortness of breath. I informed the patient that the MD prescribed the fluid in an attempt to improve kidney function but patient still declined to have IV fluids.
[2019-12-06 22:00] VITALS: BP 113/63
[2019-12-07 05:00] VITALS: BP 131/67
[2019-12-07] MEDS ORDERED: SODIUM CHLORIDE 0.9 % NEB SOLN 3ML NEB ONE ×3 (05:35→12:07)
--- NOTE | 2019-12-07 05:54 | NUR ---
Patient reports pain 6 out of 10 in her lower abdomen. Pain occurs frequently at home and is attributed by patient to kidney disease. Patient states she takes Tylenol at home to ease pain. Patient does not want stronger medication Will administer Tylenol and continue to assess.
[2019-12-07] MEDS: ACCU-CHEK COMFORT CURVE STRIP VI SCH ×4 (06:00→21:38)
[2019-12-07] MEDS: ACETAMINOPHEN 500 MG TAB PO PRN ×2 (06:00→21:41)
[2019-12-07] MEDS: InsuLIN REG 1unit/0.01ml Soln (100units/ml) SC SCH ×4 (06:01→21:38)
[2019-12-07] MEDS ORDERED: ATO40T PO (06:14)
[2019-12-07] MEDS ORDERED: ISOS30TA4 PO (06:15)
[2019-12-07] MEDS: ALBUTEROL SULF 2.5 MG/0.5ML(0.5%) NEB SOLN NEB SCH ×3 (06:23→19:01)
--- NOTE | 2019-12-07 07:50 | NUR ---
Opening Shift Note Assumed care of patient, awake and alert. No S/S of distress/SOB or pain. Instructed on POC and to call for assist PRN, will continue to monitor for changes Q1hr and PRN. Bed locked in lowest position with two side rails up and call light in reach.
[2019-12-07 08:00] VITALS: BP 150/83
[2019-12-07 09:00] VITALS: BP 150/83
[2019-12-07] MEDS: ENOXAPARIN SOD 30 MG/0.3 ML SYRINGE SC SCH (09:56)
[2019-12-07] MEDS: cefTRIAXone 1GM/50ML D5W 50 ML IV SCH (09:57)
[2019-12-07] MEDS: levETIRAcetam 500 MG TAB PO SCH ×2 (09:57→21:37)
[2019-12-07] MEDS: AZITHROMYCIN 250 MG TAB PO SCH (09:57)
[2019-12-07] MEDS: CARVEDILOL 12.5 MG TAB PO SCH ×2 (09:57→21:38)
[2019-12-07] MEDS: amLODIPine BESYLATE 5 MG TAB PO SCH (09:58)
[2019-12-07] MEDS: ASPirin 81 mg TAB PO SCH (09:58)
[2019-12-07 10:23] LABS: Basophils # (auto) 0.1 10 ^3/uL (0-0.2); Basophils % (auto) 0.9 % (0.0-2.0); Eosinophils # (auto) 0.4 10 ^3/uL (0-0.8); Eosinophils % (auto) 4.9 % (0.0-7.0); Hematocrit 34.8 % (36.0-46.0); Hemoglobin 11.3 g/dL (12.2-16.2); Lymphocytes # (auto) 2.4 10 ^3/uL (0.4-5.4); Lymphocytes % (auto) 31.6 % (10.0-50.0); Mean Corpuscular Hgb Conc. 32.4 g/dL (32.0-36.0); Mean Corpuscular Volume 83.2 fL (80.0-100.0); Monocytes # (auto) 0.7 10 ^3/uL (0-1.3); Monocytes % (auto) 9.3 % (0.0-12.0); Neutrophils # (auto) 4.1 10 ^3/uL (1.6-8.6); Neutrophils % (auto) 53.3 % (37.0-80.0); Nucleated Red Blood Cells % 0.1 %; Platelet Count (auto) 268 10^3/uL (140-450); Red Blood Cells 4.19 10^6/uL (4.0-5.20); Red Cell Distribution Width 13.1 % (11.8-14.3); White Blood Cell 7.6 10^3/uL (4.4-10.8)
[2019-12-07 10:43] LABS: BUN/Creatinine Ratio 14.2; Calcium 8.3 mg/dL (8.5-10.1); Potassium 4.8 mmol/L (3.5-5.1)
[2019-12-07 13:00] VITALS: BP 122/81
[2019-12-07 17:05] VITALS: BP 122/63
--- NOTE | 2019-12-07 19:04 | NUR ---
RT NOTE PT WAS SEEN BY RT FOR HHN TX. PT TOLERATES WELL VIA MASK. NO ADVERSE REACTION NOTED. CONT ORDERED Addendum: 12/07/19 at 1905 by Barbara Cordero RT Amended: Links added.
[2019-12-07 22:01] VITALS: BP 135/75
--- NOTE | 2019-12-07 23:06 | NUR ---
IV removal IV DC'd with clean sterile technique, catheter fully intact. Pressure dressing applied to site. Patient tolerated well.
--- NOTE | 2019-12-07 23:28 | NUR ---
IV insertion IV access obtained, via clean sterile technique by inserting 22 gauge catheter at left hand after 2 attempt(s). IV secured properly. No trauma to site. Patient tolerated well.
[2019-12-08 05:06] VITALS: BP 149/79
[2019-12-08] MEDS: ALBUTEROL SULF 2.5 MG/0.5ML(0.5%) NEB SOLN NEB SCH ×2 (06:19→12:11)
[2019-12-08 06:28] LABS: BUN/Creatinine Ratio 15.3; Calcium 8.1 mg/dL (8.5-10.1); Potassium 4.6 mmol/L (3.5-5.1)
[2019-12-08] MEDS: ACCU-CHEK COMFORT CURVE STRIP VI SCH ×2 (06:36→11:52)
[2019-12-08] MEDS: InsuLIN REG 1unit/0.01ml Soln (100units/ml) SC SCH ×2 (06:41→11:30)
[2019-12-08] MEDS: ACETAMINOPHEN 500 MG TAB PO PRN (06:41)
--- NOTE | 2019-12-08 07:15 | NUR ---
OPENING SHIFT NOTE ASSUMED CARE OF PATIENT FROM SPICE FUMIGATOR RN AARON. PATIENT IS AWAKE, ALERT, AND ORIENTED X4, PATIENT HAS NO S/S OF DISTRESS/SOB OR PAIN. INSTRUCTED PATIENT ON POC, PATIENT VERBALIZED UNDERSTANDING. BED IS IN LOWEST POSITION WITH SIDE RAILS RAISED X2, BED WHEELS LOCKED, CALL LIGHT AND BED SIDE COMMODE ARE WITHIN REACH. WILL CONTINUE TO MONITOR.
[2019-12-08 07:54] VITALS: BP 140/76
[2019-12-08] MEDS: ASPirin 81 mg TAB PO SCH (09:02)
[2019-12-08] MEDS: CARVEDILOL 12.5 MG TAB PO SCH (09:02)
[2019-12-08] MEDS: cefTRIAXone 1GM/50ML D5W 50 ML IV SCH (09:02)
[2019-12-08] MEDS: levETIRAcetam 500 MG TAB PO SCH (09:02)
[2019-12-08] MEDS: amLODIPine BESYLATE 5 MG TAB PO SCH (09:03)
[2019-12-08] MEDS ORDERED: FUROSEMIDE 20 MG TAB PO SCH (10:00)
--- NOTE | 2019-12-08 10:05 | NUR ---
assessment Patient is a 63 year old female who is alert and oriented. Patients cognitive abilities are intact. Prior to admission patient lived home with family and functioned with assistance. Per patient she will return home to her prior living arrangements post discharge and family will transport her home. Patient has a fww, wheelchair, and scooter for home use. Patients riky Mclean is her [facility] caregiver. patient has no safety issues regarding returning home on discharge. Patient has no post discharge needs identified. I informed patient she has a right to speak to a social work assistant regarding all care. I informed patient she has a right to participate in any and all discharge planning. Patient has a POA and advanced directive. Patient verbalized understanding and agreed to discharge plan. Addendum: 12/08/19 at 1527 by Anjali SCRUGGS Amended: Links added.
--- NOTE | 2019-12-08 12:00 | NUR ---
MD JHAVERI AT BEDSIDE UPDATED MD ON PATIENT'S STATUS, MD IS AWARE. PER MD PATIENT IS CLEARED FOR DISCHARGE.
[2019-12-08 13:00] VITALS: BP 112/68
[2019-12-08 14:03] VITALS: BP 112/68
== END 2019-12-08 14:52 | disposition home or self-care (01) | DRG 871 ==
LOC: ER 16:06 → TELE 16:07 → TELE-EAST 20:15 → TELE-WESTW 12-05 13:23
PROVIDERS: ADMIT Nurse Practitioner Acute Care; ATTEND Internal Medicine
DX: A41.9 Sepsis, unspecified organism (principal); N17.0 Acute kidney failure with tubular necrosis; N18.6 End stage renal disease; I50.33 Acute on chronic diastolic (congestive) heart failure; N39.0 Urinary tract infection, site not specified; I13.2 Hypertensive heart and chronic kidney disease with heart failure and with stage 5 chronic kidney disease, or end stage renal disease; E11.65 Type 2 diabetes mellitus with hyperglycemia; D86.9 Sarcoidosis, unspecified; M32.9 Systemic lupus erythematosus, unspecified; E11.22 Type 2 diabetes mellitus with diabetic chronic kidney disease; G40.909 Epilepsy, unspecified, not intractable, without status epilepticus; Z89.612 Acquired absence of left leg above knee; R65.20 Severe sepsis without septic shock; G43.909 Migraine, unspecified, not intractable, without status migrainosus; I25.10 Atherosclerotic heart disease of native coronary artery without angina pectoris; B96.20 Unspecified Escherichia coli [E. coli] as the cause of diseases classified elsewhere; F10.21 Alcohol dependence, in remission; I48.91 Unspecified atrial fibrillation; Z79.4 Long term (current) use of insulin; Z79.82 Long term (current) use of aspirin; Z86.73 Personal history of transient ischemic attack (TIA), and cerebral infarction without residual deficits; I25.2 Old myocardial infarction; Z79.899 Other long term (current) drug therapy; Z82.49 Family history of ischemic heart disease and other diseases of the circulatory system; Z90.710 Acquired absence of both cervix and uterus; Z83.3 Family history of diabetes mellitus; Z91.040 Latex allergy status; Z88.0 Allergy status to penicillin; Z88.2 Allergy status to sulfonamides; Z91.018 Allergy to other foods; Z03.818 Encounter for observation for suspected exposure to other biological agents ruled out
CPT/HCPCS: 36415; 51702; 71045; 80048; 80053; 81001; 82728; 82962; 83036; 83605; 83615; 83735; 83880; 84484; 85025; 85379; 86141; 87040; 87070; 87086; 87088; 87186; 87804; 87880; 94640; 96374; 96375; G0378; J0696; J1815

== ENCOUNTER → 2019-12-12 | Outpatient (CLI) | payer MEDICARE, MEDICAID ==
[~2019-12-12] MED LIST changes: -ACET-1156 PO; +ACET-1158 PO; +AMLO10TA13 PO; -AMLO5TAB15 PO; +ASPI-498 PO; +ATO40T PO; -CARV12.544 PO; +CARV25TA55 PO; +DIAZ2TAB PO; +HYDR-2691 PO; +INSDRIP SC; -INSU1.2I SC; +INSU1INJ19 SC; +ISOS30TA4 PO; +LEVE500T22 PO; -LORA0.5T12 PO; +PROM25TA5 PO
[2019-12-12 12:42] LABS: Basophils # (auto) 0.1 10 ^3/uL (0-0.2); Basophils % (auto) 0.8 % (0.0-2.0); Eosinophils # (auto) 0.4 10 ^3/uL (0-0.8); Eosinophils % (auto) 4.6 % (0.0-7.0); Hematocrit 34.9 % (36.0-46.0); Hemoglobin 11.4 g/dL (12.2-16.2); Lymphocytes # (auto) 2.5 10 ^3/uL (0.4-5.4); Lymphocytes % (auto) 28.4 % (10.0-50.0); Mean Corpuscular Hemoglobin 27.3 pg (28.0-32.0); Mean Corpuscular Hgb Conc. 32.5 g/dL (32.0-36.0); Mean Corpuscular Volume 83.9 fL (80.0-100.0); Monocytes # (auto) 0.7 10 ^3/uL (0-1.3); Monocytes % (auto) 8.3 % (0.0-12.0); Neutrophils # (auto) 5.2 10 ^3/uL (1.6-8.6); Neutrophils % (auto) 57.9 % (37.0-80.0); Nucleated Red Blood Cells % 0.1 %; Platelet Count (auto) 284 10^3/uL (140-450); Red Blood Cells 4.17 10^6/uL (4.0-5.20); Red Cell Distribution Width 13.7 % (11.8-14.3); White Blood Cell 8.9 10^3/uL (4.4-10.8)
[2019-12-12 13:02] LABS: Albumin 2.7 g/dL (3.4-5.0); BUN/Creatinine Ratio 10.3; Calcium 8.5 mg/dL (8.5-10.1); Potassium 4.6 mmol/L (3.5-5.1)
[2019-12-12 13:04] LABS: Bilirubin, Total 0.3 mg/dL (0.2-1.0); Total Protein 7.1 g/dL (6.4-8.2)
== END | disposition home or self-care (01) ==
LOC: LAB 12:17
PROVIDERS: ATTEND Internal Medicine Nephrology
DX: N18.4 Chronic kidney disease, stage 4 (severe) (principal)
CPT/HCPCS: 36415; 80053; 85025

== ENCOUNTER → 2019-12-20 | Outpatient (CLI) | payer MEDICARE, MEDICAID | END | disposition home or self-care (01) | LOC: LAB 14:49 | PROVIDERS: ATTEND Internal Medicine | DX: N39.0 Urinary tract infection, site not specified (principal) | CPT/HCPCS: 87086 ==

== ENCOUNTER → 2019-12-26 | Outpatient (CLI) | payer MEDICARE, MEDICAID ==
[~2019-12-26] MED LIST changes: -LEVE500T22 PO; +LEVE500T32 PO
== END | disposition home or self-care (01) ==
LOC: LAB 15:16
PROVIDERS: ATTEND Internal Medicine
DX: N39.0 Urinary tract infection, site not specified (principal)
CPT/HCPCS: 87086; 87088; 87186

== ENCOUNTER → 2020-01-31 | Outpatient (CLI) | payer MEDICARE, MEDICAID ==
[2020-01-31 10:49] LABS: Basophils # (auto) 0.1 10 ^3/uL (0-0.2); Basophils % (auto) 0.7 % (0.0-2.0); Eosinophils # (auto) 0.3 10 ^3/uL (0-0.8); Eosinophils % (auto) 2.4 % (0.0-7.0); Hematocrit 34.6 % (36.0-46.0); Hemoglobin 11.3 g/dL (12.2-16.2); Lymphocytes # (auto) 3.4 10 ^3/uL (0.4-5.4); Lymphocytes % (auto) 25.8 % (10.0-50.0); Mean Corpuscular Hemoglobin 27.5 pg (28.0-32.0); Mean Corpuscular Hgb Conc. 32.6 g/dL (32.0-36.0); Mean Corpuscular Volume 84.4 fL (80.0-100.0); Monocytes % (auto) 7.2 % (0.0-12.0); Neutrophils # (auto) 8.4 10 ^3/uL (1.6-8.6); Neutrophils % (auto) 63.9 % (37.0-80.0); Nucleated Red Blood Cells % 0.1 %; Platelet Count (auto) 250 10^3/uL (140-450); Red Cell Distribution Width 14.2 % (11.8-14.3); White Blood Cell 13.2 10^3/uL (4.4-10.8)
[2020-01-31 10:50] LABS: Urine Bacteria NONE SEEN /hpf (None Seen); Urine Blood 1+ /uL (Negative); Urine Specific Gravity 1.017 (1.001-1.035); Urine WBC 3 /hpf (0 - 5)
[2020-01-31 11:11] LABS: Calcium 7.9 mg/dL (8.5-10.1); Potassium 4.1 mmol/L (3.5-5.1)
[2020-01-31 11:16] LABS: BUN/Creatinine Ratio 9.1; Phosphorus 4.4 mg/dL (2.5-4.90)
[2020-01-31 11:50] LABS: % Iron Saturation 24.7 % (15-50)
[2020-01-31 12:09] LABS: Protein, Urine 901.4 mg/dL (0.0-11.9)
== END | disposition home or self-care (01) ==
LOC: LAB 09:56
PROVIDERS: ATTEND Student in an Organized Health Care Education/Training Program
DX: E11.22 Type 2 diabetes mellitus with diabetic chronic kidney disease (principal); I12.9 Hypertensive chronic kidney disease with stage 1 through stage 4 chronic kidney disease, or unspecified chronic kidney disease; N18.3 Chronic kidney disease, stage 3 (moderate); D63.1 Anemia in chronic kidney disease; E21.3 Hyperparathyroidism, unspecified; N39.0 Urinary tract infection, site not specified; R80.9 Proteinuria, unspecified; R76.0 Raised antibody titer
CPT/HCPCS: 36415; 80048; 81001; 82570; 83036; 83540; 83550; 84100; 84156; 85025; 87086

== ENCOUNTER 2020-02-21 11:38 | Inpatient (IN) | payer MEDICARE, MEDICAID ==
[~2020-02-21] VITALS: Ht 154.9 cm; Wt 79.4 kg
[~2020-02-21 11:38] MED LIST changes: +LEVE500T22 PO; -LEVE500T32 PO
[2020-02-21 14:35] LABS: Basophils # (auto) 0.1 10 ^3/uL (0-0.2); Basophils % (auto) 0.6 % (0.0-2.0); Eosinophils # (auto) 0.3 10 ^3/uL (0-0.8); Eosinophils % (auto) 2.8 % (0.0-7.0); Hematocrit 31.6 % (36.0-46.0); Hemoglobin 10.2 g/dL (12.2-16.2); Lymphocytes # (auto) 2.7 10 ^3/uL (0.4-5.4); Lymphocytes % (auto) 24.4 % (10.0-50.0); Mean Corpuscular Hemoglobin 27.4 pg (28.0-32.0); Mean Corpuscular Hgb Conc. 32.2 g/dL (32.0-36.0); Mean Corpuscular Volume 85.3 fL (80.0-100.0); Monocytes # (auto) 0.8 10 ^3/uL (0-1.3); Monocytes % (auto) 6.9 % (0.0-12.0); Neutrophils # (auto) 7.4 10 ^3/uL (1.6-8.6); Neutrophils % (auto) 65.3 % (37.0-80.0); Nucleated Red Blood Cells % 0.1 %; Platelet Count (auto) 250 10^3/uL (140-450); Red Blood Cells 3.71 10^6/uL (4.0-5.20); Red Cell Distribution Width 14.1 % (11.8-14.3); White Blood Cell 11.3 10^3/uL (4.4-10.8)
[2020-02-21 14:48] LABS: Alanine Aminotransferase 14 U/L (13-56); Albumin 2.3 g/dL (3.4-5.0); Anion Gap 6 (5-15); Blood Urea Nitrogen 31 mg/dL (7-18); Calcium 8.1 mg/dL (8.5-10.1); Carbon Dioxide 21 mmol/L (21-32); Chloride 112 mmol/L (98-107); Glucose 171 mg/dL (74-106); Potassium 4.3 mmol/L (3.5-5.1); Sodium 139 mmol/L (136-145)
[2020-02-21 14:54] LABS: Alkaline Phosphatase 169 U/L (45-117); Aspartate Aminotransferase 8 U/L (15-37); Bilirubin, Total 0.2 mg/dL (0.2-1.0); GFR African American 15 mL/min; GFR Non-African American 12 mL/min; Total Protein 6.4 g/dL (6.4-8.2)
[2020-02-21 15:32] LABS: INR 0.94 (0.9-1.15); Partial Thromboplastin Time 26.4 sec (23.64-32.05)
[2020-02-21] MEDS ORDERED: ACETAMINOPHEN 500 MG TAB PO PRN ×2 (17:30→20:15)
[2020-02-21] MEDS ORDERED: NITROGLYCERIN 0.4 MG SL TAB SL PRN (17:30)
[2020-02-21] MEDS ORDERED: MORPHINE SULF INJ 2 MG/ML SYRINGE 1ML IV PRN ×2 (17:30→20:15)
[2020-02-21] MEDS ORDERED: TEMAZEPAM 15 MG CAP PO PRN (20:15)
[2020-02-21] MEDS ORDERED: diazePAM 2 MG TAB PO PRN (20:15)
[2020-02-21] MEDS ORDERED: LACTULOSE 20Gm/30ML SOLN PO PRN ×2 (20:15)
[2020-02-21] MEDS ORDERED: LABETALOL HCL 5 MG/ML ML 20ML VIAL IV PRN (20:15)
[2020-02-21] MEDS ORDERED: DEXTROSE (50%) 50ML SYRG IV PRN (20:15)
[2020-02-21] MEDS ORDERED: levoFLOXacin 250MG 50 ML IV ONE (20:15)
[2020-02-21] MEDS ORDERED: ALBUTEROL SULF HFA 90MCG INH 200DOSE IN SCH (22:00)
[2020-02-21] MEDS ORDERED: BUDESONIDE (INHALATION) 180 MCG IH IN SCH (22:00)
[2020-02-21 22:55] LABS: CRP High Sensitivity 0.23 mg/dL (< 0.3)
[2020-02-21] MEDS: CARVEDILOL 12.5 MG TAB PO SCH (23:40)
--- NOTE | 2020-02-21 23:40 | NUR ---
Telemetry admit from ER Patient admitted to Telemetry unit. Patient oriented to primary RN, unit, room, bed, and unit policies regarding patient care and visiting hours. Patient now on continuous telemetry monitoring, tele box #6 and telemetry reading on arrival to unit is 67 bpm. Patient weighed by bed scale and encouraged to call if they need something. No s/s of distress or SOB, respirations even and unlabored, patient denies pain. Bed in lowest locked position with two side rails raised, call yanez within reach, and bed alarm activated for safety. Instructed on POC and encouraged to use call yanez for assistance, All questions and concerns addressed, patient verbalized understanding. Will continue to monitor Q1 hr and PRN.
[2020-02-21] MEDS: levETIRAcetam 500 MG TAB PO SCH (23:41)
[2020-02-21] MEDS: ATORVASTATIN 20 MG TAB PO SCH (23:41)
[2020-02-21] MEDS: ACCU-CHEK COMFORT CURVE STRIP VI SCH (23:41)
[2020-02-21] MEDS: FAMOTIDINE 20 MG TAB PO SCH (23:42)
[2020-02-21] MEDS: InsuLIN REG 1unit/0.01ml Soln (100units/ml) SC SCH (23:45)
[2020-02-21] MEDS: INSULIN LANTUS (GLARGINE) 1 /0.01ml (100units/ml) SC SCH (23:46)
[2020-02-22 00:30] VITALS: BP 143/76
[2020-02-22 00:55] VITALS: BP 143/76
[2020-02-22 02:55] LABS: Albumin 2.1 g/dL (3.4-5.0); BUN/Creatinine Ratio 9.5; Potassium 4.2 mmol/L (3.5-5.1)
[2020-02-22 02:58] LABS: Bilirubin, Total 0.2 mg/dL (0.2-1.0); Total Protein 6.2 g/dL (6.4-8.2)
--- NOTE | 2020-02-22 03:04 | NUR ---
Care endorsed to Meaghan ROLON and patient transported out of COVID unit via wheelchair without incident.
--- NOTE | 2020-02-22 03:15 | NUR ---
Assumed patient care Received report from Dalia Crespo RN. Patient transferred from Covsc unit to room 274B via wheelchair. Pt AAO X4. Respirations even and unlabored. No complaints of pain or discomfort. Patient on room air. Patient ambulatory to bedside commode. Bed in lowest locked position, safety precautions, call light within reach. Patient oriented to surrounding and to use Nurse call light for any help. Will continue to monitor patient. Signed: 02/22/20 at 0400 by ARELY SINHA <Co-Signature Required> Co-Signed: 02/22/20 at 0400 by Dinorah Vázquez RN RN
--- NOTE | 2020-02-22 04:02 | NUR ---
Urine specimen obtained at 0345. Sent to lab via bullet. Signed: 02/22/20 at 0406 by ARELY BHATTI <Co-Signature Required> Co-Signed: 02/22/20 at 405 by Dinorah Vázquez RN RN
[2020-02-22 04:44] LABS: Urine Bacteria FEW /hpf (None Seen); Urine Blood Negative /uL (Negative); Urine Hyaline Cast FEW /lpf (0 - 2); Urine Specific Gravity 1.015 (1.001-1.035); Urine WBC 1 /hpf (0 - 5)
[2020-02-22 07:00] LABS: Basophils # (auto) 0.1 10 ^3/uL (0-0.2); Basophils % (auto) 0.6 % (0.0-2.0); Eosinophils # (auto) 0.3 10 ^3/uL (0-0.8); Eosinophils % (auto) 2.8 % (0.0-7.0); Hematocrit 33.3 % (36.0-46.0); Hemoglobin 10.7 g/dL (12.2-16.2); Lymphocytes # (auto) 2.9 10 ^3/uL (0.4-5.4); Lymphocytes % (auto) 23.9 % (10.0-50.0); Mean Corpuscular Hemoglobin 27.4 pg (28.0-32.0); Mean Corpuscular Hgb Conc. 32.1 g/dL (32.0-36.0); Mean Corpuscular Volume 85.5 fL (80.0-100.0); Neutrophils # (auto) 7.9 10 ^3/uL (1.6-8.6); Neutrophils % (auto) 64.7 % (37.0-80.0); Nucleated Red Blood Cells % 0.1 %; Platelet Count (auto) 275 10^3/uL (140-450); Red Cell Distribution Width 14.2 % (11.8-14.3); White Blood Cell 12.2 10^3/uL (4.4-10.8)
[2020-02-22] MEDS: InsuLIN REG 1unit/0.01ml Soln (100units/ml) SC SCH ×4 (07:00→21:57)
[2020-02-22] MEDS: ACCU-CHEK COMFORT CURVE STRIP VI SCH ×4 (07:03→21:57)
--- NOTE | 2020-02-22 07:25 | NUR ---
LOW BLOOD GLUCOSE 40 PATIENT C/O SWEATING ASSOCIATED WITH LOW BLOOD SUGAR. GAVE PATIENT 8 OZ OF ORANGE JUICE, WAITED 15 MINS, RECHECKED BLOOD GLUCOSE READING 53. PATIENT ASYMPTOMATIC, GAVE 8 OZ OF ORANGE JUICE AND JENNIFER CRACKERS, WAITED 15 MINS, RECHECKED BLOOD GLUCOSE READING 85. PATIENT REMAINS ASYMPTOMATIC, PAGED HOSPITALIST PER PROTOCOL, AWAITING CALL BACK. WILL CONTINUE TO MONITOR AND CONTINUE CARE.
--- NOTE | 2020-02-22 07:35 | NUR ---
REPORT GIVEN TO MONET PRICE. MADE AWARE OF PATIENTS LOW BLOOD GLUCOSE READING. PATIENT NO ACUTE S/S OF SOB OR DISTRESS NOTED. ENDORSED CARE.
[2020-02-22] MEDS: hydrALAZINE HCL 25 MG TAB PO SCH ×3 (08:00→17:35)
[2020-02-22 09:00] VITALS: BP 125/62
[2020-02-22] MEDS ORDERED: CHOLECALCIFEROL (VITD3) 1,000UNIT=25mCg TAB PO SCH (10:00)
[2020-02-22] MEDS ORDERED: ASCORBIC ACID 1,000 MG TAB PO SCH ×2 (10:00)
[2020-02-22] MEDS ORDERED: ASPirin 81 mg TAB PO SCH (10:00)
[2020-02-22] MEDS ORDERED: ZINC SULFATE 220mg CAP or TAB PO SCH (10:00)
[2020-02-22] MEDS: ENOXAPARIN SOD 30 MG/0.3 ML SYRINGE SC SCH (10:03)
[2020-02-22] MEDS: levETIRAcetam 500 MG TAB PO SCH ×2 (10:06→21:56)
[2020-02-22] MEDS: FAMOTIDINE 20 MG TAB PO SCH (10:07)
[2020-02-22] MEDS: INSULIN LANTUS (GLARGINE) 1 /0.01ml (100units/ml) SC SCH ×2 (10:16→21:58)
[2020-02-22] MEDS: ASPirin-EC 81 mg tab PO SCH (10:18)
[2020-02-22] MEDS: levoFLOXacin 250MG 50 ML IV SCH (10:20)
[2020-02-22] MEDS: ISOSORBIDE MONONITRATE ER 60 MG TAB PO SCH (10:20)
--- NOTE | 2020-02-22 10:30 | NUR ---
REFUSING AM BP MEDS AT DUE TIME STATING THAT SHE IS WAITING FOR HER DIASTOLIC BP TO COME UP BP ON ASSESSMENT 125/62 HR 61 SHE STATES AT HOME SHE WONT TAKE HER BP MEDS UNTIL HER DIASTOLIC PRESSURE IS ABOVE 70, WILL NOTIFY MD AND CONTINUE TO REASSESS. PATIENT ALSO STATES SHE TAKES ENTERIC COATED ASA 81 MG, WILL CALL PHARMACY TO RELEASE HOLD ON MED FOR AM ADMINISTRATION.
--- NOTE | 2020-02-22 10:31 | NUR ---
IV removal IV DC'd with sterile technique, catheter fully intact. Pressure dressing applied to site. Patient tolerated procedure well.
--- NOTE | 2020-02-22 10:31 | NUR ---
IV insertion IV access obtained, via clean sterile technique by inserting 22 gauge catheter at right wrist after 2 attempts. IV secured properly. No trauma to site. Patient tolerated procedure well.
--- NOTE | 2020-02-22 10:32 | NUR ---
Opening Shift Note Assumed care of patient, awake and alert. No S/S of distress/SOB or pain. Instructed on POC and to call for assist PRN. Call light within reach, bed in lowest locked position. Will continue to monitor for changes Q1hr and PRN. Addendum: 02/22/20 at 1138 by ALBERT KHALIL RN RN adjust opening shift note to [phone]
[2020-02-22] MEDS: ONDANSETRON HCL 4 MG/2 ML VIAL IV PRN (11:56)
[2020-02-22] MEDS: amLODIPine BESYLATE 5 MG TAB PO SCH (12:45)
[2020-02-22] MEDS: CARVEDILOL 12.5 MG TAB PO SCH ×2 (12:46→17:35)
[2020-02-22] MEDS: FUROSEMIDE 40 MG TAB PO SCH (12:46)
--- NOTE | 2020-02-22 12:50 | NUR ---
DR German SWAIN AT BEDSIDE
[2020-02-22 13:00] VITALS: BP 134/71
[2020-02-22 16:54] VITALS: BP 106/85
[2020-02-22] MEDS: traMADol HCL 50 MG TAB PO PRN (17:27)
--- NOTE | 2020-02-22 19:10 | NUR ---
Opening Shift Note Assumed care of patient, awake and alert. No S/S of distress/SOB or pain. Instructed on POC and to call for assistance PRN, will continue to monitor for changes Q1hr and PRN. Safety precautions in place bed is in lowest position and locked, bed rails 2x. Seizure precautions in place padded side rails 2x and suction at bedside. Call light and bedside table are within reach.
[2020-02-22] MEDS ORDERED: LORazepam 2MG/ML-1ML VIAL IV PRN ×2 (21:45)
[2020-02-22] MEDS: ATORVASTATIN 20 MG TAB PO SCH (21:56)
[2020-02-22 22:00] VITALS: BP 113/65
--- NOTE | 2020-02-22 23:30 | NUR ---
PLACED PT ON CPAP ORDERED FOR SLEEP APNEA. PT SAYS SHE REMEMBERS WEARING CPAP AT HOME WITH PRESSURE +4CMH2O. CPAP UNIT PLUGGED INTO RED OUTLET. PT FITTED WITH SIZE MEDIUM FACIAL MASK, CONNECTED TO CONTINUOUS POX MONITOR AT BEDSIDE. PT TOLERATING WELL, NO S/S OF DISTRESS. RN AT BEDSIDE, AWARE OF CHANGES. ADVISED PT TO CALL FOR RT IF NEEDED. WILL CONTINUE TO MONITOR.
--- NOTE | 2020-02-23 03:55 | NUR ---
TOOK PT OFF CPAP PER PT'S REQUEST. PLACED ON 2LPM NASAL CANNULA. HR 74, RR 16, SPO2 98%. NO S/S OF DISTRESS.
--- NOTE | 2020-02-23 04:02 | NUR ---
Paged hospitalist Patient complains of generalized itchiness. At this time, patient has no s/s of distress or SOB. Awaiting call back. Will continue to monitor Q1 and PRN.
[2020-02-23 05:00] VITALS: BP 130/74
--- NOTE | 2020-02-23 06:12 | NUR ---
Call back from Hospitalist Informed hospitalist patient complains of itchiness. New orders received, orders verified and read back. Will continue to monitor patient Q1 and PRN.
[2020-02-23] MEDS ORDERED: diphenhdrAMINE HCL 25 MG CAP PO ONE (06:15)
--- NOTE | 2020-02-23 06:28 | NUR ---
Low blood sugar Patient blood sugar 60. Gave patient an apple juice and crackers. At this time patient has no s/s of distress or SOB. Will continue to monitor Q1 and PRN.
[2020-02-23] MEDS: ACCU-CHEK COMFORT CURVE STRIP VI SCH ×4 (06:30→22:08)
[2020-02-23] MEDS: InsuLIN REG 1unit/0.01ml Soln (100units/ml) SC SCH ×4 (06:30→22:16)
--- NOTE | 2020-02-23 07:00 | NUR ---
Opening Shift Note Received report on the patient. Awake lying in bed. Patient shows no signs of distress at this time. Discussed plan of care with the patient. Bed in lowest position, side rails up x2, and call light is within reach.
--- NOTE | 2020-02-23 07:15 | NUR ---
End of Shift Note Endorsed care to dayshift RN. At this time patient has no s/s of distress or SOB. Patient responsive to name and touch, no complaints.
--- NOTE | 2020-02-23 08:41 | NUR ---
Dr Duran at bedside. New orders received.
[2020-02-23 09:00] VITALS: BP 148/74
[2020-02-23] MEDS: levoFLOXacin 250MG 50 ML IV SCH (10:07)
[2020-02-23] MEDS: hydrALAZINE HCL 25 MG TAB PO SCH ×3 (10:07→18:00)
[2020-02-23] MEDS: CARVEDILOL 12.5 MG TAB PO SCH ×2 (10:07→18:00)
[2020-02-23] MEDS: ISOSORBIDE MONONITRATE ER 60 MG TAB PO SCH (10:08)
[2020-02-23] MEDS: levETIRAcetam 500 MG TAB PO SCH ×2 (10:08→22:07)
[2020-02-23] MEDS: FUROSEMIDE 40 MG TAB PO SCH (10:08)
[2020-02-23] MEDS: ASPirin-EC 81 mg tab PO SCH (10:08)
[2020-02-23] MEDS: amLODIPine BESYLATE 5 MG TAB PO SCH (10:09)
[2020-02-23] MEDS: FAMOTIDINE 20 MG TAB PO SCH (10:09)
[2020-02-23] MEDS: ENOXAPARIN SOD 30 MG/0.3 ML SYRINGE SC SCH (10:09)
--- NOTE | 2020-02-23 11:15 | NUR ---
Spoke to Dr Duran and informed him that the patient has had 4 IV's since she was admitted. New orders received for a midline.
[2020-02-23 13:03] VITALS: BP 101/58
--- NOTE | 2020-02-23 14:00 | NUR ---
Midline Placement: Patient educated on need for midline placement. All risks and benefits explained and all questions and concerns addresses prior to procedure. 18g/10cm midline inserted via left basilic vein using Ultrasound. Sterile technique utilized. Blood return obtained from lumen and flushed easily with NS using proper technique. Midline secured with saline lock; biodisc and occlusive dressing applied. Primary RN notified. Midline lot #[id number]
[2020-02-23 16:40] VITALS: BP 110/64
[2020-02-23] MEDS: traMADol HCL 50 MG TAB PO PRN (20:11)
[2020-02-23 22:00] VITALS: BP 128/77
[2020-02-23] MEDS: ATORVASTATIN 20 MG TAB PO SCH (22:08)
[2020-02-23] MEDS: ONDANSETRON HCL 4 MG/2 ML VIAL IV PRN (23:06)
[2020-02-24 05:00] VITALS: BP 121/61
[2020-02-24] MEDS: InsuLIN REG 1unit/0.01ml Soln (100units/ml) SC SCH ×4 (06:29→21:30)
[2020-02-24] MEDS: ACCU-CHEK COMFORT CURVE STRIP VI SCH ×4 (06:29→21:29)
--- NOTE | 2020-02-24 07:10 | NUR ---
End of Shift Note Endorsed care to dayshift RN. At this time patient has no s/s of distress or SOB. Patient responsive to name and touch.
--- NOTE | 2020-02-24 08:55 | NUR ---
Dr Duran at bedside. No new orders received.
[2020-02-24 09:00] VITALS: BP 126/71
[2020-02-24] MEDS: CARVEDILOL 12.5 MG TAB PO SCH ×2 (10:11→18:00)
[2020-02-24] MEDS: hydrALAZINE HCL 25 MG TAB PO SCH ×3 (10:11→18:00)
[2020-02-24] MEDS: ASPirin-EC 81 mg tab PO SCH (10:12)
[2020-02-24] MEDS: ISOSORBIDE MONONITRATE ER 60 MG TAB PO SCH (10:12)
[2020-02-24] MEDS: levETIRAcetam 500 MG TAB PO SCH ×2 (10:12→21:29)
[2020-02-24] MEDS: levoFLOXacin 250MG 50 ML IV SCH (10:12)
[2020-02-24] MEDS: FAMOTIDINE 20 MG TAB PO SCH (10:13)
[2020-02-24] MEDS: FUROSEMIDE 40 MG TAB PO SCH (10:13)
[2020-02-24] MEDS: amLODIPine BESYLATE 5 MG TAB PO SCH (10:13)
[2020-02-24] MEDS: ENOXAPARIN SOD 30 MG/0.3 ML SYRINGE SC SCH (10:14)
--- NOTE | 2020-02-24 10:44 | NUR ---
Called stress lab to follow up on the EEG. Tech stated that it will be done today.
[2020-02-24] MEDS ORDERED: diphenhdrAMINE HCL 50 MG/1 ML VL IM ONE (11:45)
[2020-02-24] MEDS ORDERED: diphenhdrAMINE HCL 50 MG/1 ML VL IV ONE (12:00)
[2020-02-24 13:00] VITALS: BP 133/85
[2020-02-24] MEDS: traMADol HCL 50 MG TAB PO PRN (14:05)
--- NOTE | 2020-02-24 16:01 | NUR ---
UA sent to lab
--- NOTE | 2020-02-24 16:31 | NUR ---
Dr Cruz at bedside. No new orders received. Per Dr Cruz "patient ok to be DC'd. EEG is negative".
--- NOTE | 2020-02-24 16:32 | NUR ---
Nutrition Assessment Notes Please refer to link for full assessment notes. Est Energy needs: [id number] kcals (23-25 kcal/kgBW) d/t pt with Stg 5 CKF w/o HD Est Protein needs: 63-71 gms/day (0.8-0.9 gm/kgBW) d/t pt with Stg 5 CKF w/o HD Will continue to monitor and reassess prn. Addendum: 02/24/20 at [address] Amended: Links added.
[2020-02-24 16:44] LABS: Protein, Urine 201.3 mg/dL (0.0-11.9)
--- NOTE | 2020-02-24 16:49 | NUR ---
EEG- Electroencephalogram completed on 02/24/2020.
[2020-02-24 17:26] VITALS: BP 98/45
--- NOTE | 2020-02-24 19:08 | NUR ---
Endorsed patient care to GONZALES Zapien. Patient shows no signs of distress.
--- NOTE | 2020-02-24 19:30 | NUR ---
Opening Shift Note Assumed care of patient, awake and alert. No S/S of distress/SOB or pain. Instructed on POC and to call for assist PRN. Bed in lowest locked position, call light within reach, side rails up x2, fall precautions in place. Will continue to monitor for changes Q1hr and PRN.
[2020-02-24] MEDS: ATORVASTATIN 20 MG TAB PO SCH (21:29)
[2020-02-24 22:00] VITALS: BP 102/54
--- NOTE | 2020-02-24 22:30 | NUR ---
Respiratory note: PT REFUSED TO WEAR CPAP @ NOC. PT STATED HER STOMACH DIDN'T FEEL GOOD BUT SHE WOULD WEAR IT TOMORROW. NO SOB OR DISTRESS NOTED.
[2020-02-25] MEDS: traMADol HCL 50 MG TAB PO PRN (02:08)
[2020-02-25 05:00] VITALS: BP 119/60
[2020-02-25 05:19] LABS: Basophils # (auto) 0.1 10 ^3/uL (0-0.2); Basophils % (auto) 0.5 % (0.0-2.0); Eosinophils # (auto) 0.3 10 ^3/uL (0-0.8); Eosinophils % (auto) 3.2 % (0.0-7.0); Hematocrit 32.1 % (36.0-46.0); Hemoglobin 10.3 g/dL (12.2-16.2); Lymphocytes # (auto) 2.6 10 ^3/uL (0.4-5.4); Lymphocytes % (auto) 28.9 % (10.0-50.0); Mean Corpuscular Hgb Conc. 32.2 g/dL (32.0-36.0); Monocytes # (auto) 0.7 10 ^3/uL (0-1.3); Monocytes % (auto) 7.7 % (0.0-12.0); Neutrophils # (auto) 5.5 10 ^3/uL (1.6-8.6); Neutrophils % (auto) 59.7 % (37.0-80.0); Nucleated Red Blood Cells % 0.1 %; Platelet Count (auto) 256 10^3/uL (140-450); Red Blood Cells 3.69 10^6/uL (4.0-5.20); Red Cell Distribution Width 14.2 % (11.8-14.3); White Blood Cell 9.1 10^3/uL (4.4-10.8)
[2020-02-25 05:41] LABS: Albumin 2.4 g/dL (3.4-5.0); Calcium 8.4 mg/dL (8.5-10.1); Potassium 5.1 mmol/L (3.5-5.1)
[2020-02-25 05:43] LABS: BUN/Creatinine Ratio 11.8
[2020-02-25 05:46] LABS: Bilirubin, Total 0.3 mg/dL (0.2-1.0); Total Protein 6.7 g/dL (6.4-8.2)
[2020-02-25] MEDS: InsuLIN REG 1unit/0.01ml Soln (100units/ml) SC SCH (06:33)
[2020-02-25] MEDS: ACCU-CHEK COMFORT CURVE STRIP VI SCH (06:33)
[2020-02-25] MEDS: hydrALAZINE HCL 25 MG TAB PO SCH (08:00)
[2020-02-25] MEDS: CARVEDILOL 12.5 MG TAB PO SCH (08:00)
--- NOTE | 2020-02-25 08:20 | NUR ---
Dr. Duran at bedside. New orders received.
[2020-02-25 08:41] VITALS: BP 123/58
[2020-02-25] MEDS: ISOSORBIDE MONONITRATE ER 60 MG TAB PO SCH (09:00)
[2020-02-25] MEDS: FUROSEMIDE 40 MG TAB PO SCH (09:00)
[2020-02-25] MEDS: amLODIPine BESYLATE 5 MG TAB PO SCH (09:01)
[2020-02-25] MEDS: levoFLOXacin 250MG 50 ML IV SCH (09:07)
[2020-02-25] MEDS: ASPirin-EC 81 mg tab PO SCH (09:07)
[2020-02-25] MEDS: levETIRAcetam 500 MG TAB PO SCH (09:08)
[2020-02-25] MEDS: FAMOTIDINE 20 MG TAB PO SCH (09:08)
[2020-02-25] MEDS: ENOXAPARIN SOD 30 MG/0.3 ML SYRINGE SC SCH (09:09)
[2020-02-25] MEDS ORDERED: CARVEDILOL 12.5 MG TAB PO SCH (09:30)
[2020-02-25] MEDS ORDERED: hydrALAZINE HCL 10 MG TAB PO SCH (09:30)
[2020-02-25 11:00] VITALS: BP 123/58
[2020-02-25 12:45] VITALS: BP 139/55
[2020-02-25 13:30] VITALS: BP 139/55
== END 2020-02-25 12:20 | disposition home or self-care (01) | DRG 193 ==
LOC: ER 11:38 → TELE 11:39 → TELE-EAST 22:35 → TELE-WESTW 02-22 03:00
PROVIDERS: ADMIT Internal Medicine; ATTEND Family Medicine
DX: J18.9 Pneumonia, unspecified organism (principal); N17.0 Acute kidney failure with tubular necrosis; G45.9 Transient cerebral ischemic attack, unspecified; I13.0 Hypertensive heart and chronic kidney disease with heart failure and stage 1 through stage 4 chronic kidney disease, or unspecified chronic kidney disease; J44.0 Chronic obstructive pulmonary disease with (acute) lower respiratory infection; N18.4 Chronic kidney disease, stage 4 (severe); R55 Syncope and collapse; D64.9 Anemia, unspecified; I48.91 Unspecified atrial fibrillation; I50.9 Heart failure, unspecified; D86.9 Sarcoidosis, unspecified; E11.21 Type 2 diabetes mellitus with diabetic nephropathy; G43.909 Migraine, unspecified, not intractable, without status migrainosus; Z86.73 Personal history of transient ischemic attack (TIA), and cerebral infarction without residual deficits; E78.5 Hyperlipidemia, unspecified; E11.22 Type 2 diabetes mellitus with diabetic chronic kidney disease; E11.42 Type 2 diabetes mellitus with diabetic polyneuropathy; E66.9 Obesity, unspecified; M19.90 Unspecified osteoarthritis, unspecified site; G40.409 Other generalized epilepsy and epileptic syndromes, not intractable, without status epilepticus; F32.9 Major depressive disorder, single episode, unspecified; F41.9 Anxiety disorder, unspecified; G47.30 Sleep apnea, unspecified; Z89.612 Acquired absence of left leg above knee; Z90.710 Acquired absence of both cervix and uterus; Z79.82 Long term (current) use of aspirin; Z79.899 Other long term (current) drug therapy; Z81.8 Family history of other mental and behavioral disorders; Z82.0 Family history of epilepsy and other diseases of the nervous system; Z82.49 Family history of ischemic heart disease and other diseases of the circulatory system; Z83.3 Family history of diabetes mellitus; Z89.512 Acquired absence of left leg below knee; Z90.49 Acquired absence of other specified parts of digestive tract; Z91.040 Latex allergy status; Z88.0 Allergy status to penicillin; Z88.2 Allergy status to sulfonamides; Z91.018 Allergy to other foods; Z20.828 Contact with and (suspected) exposure to other viral communicable diseases; Z68.32 Body mass index [BMI] 32.0-32.9, adult
CPT/HCPCS: 36415; 70450; 70551; 71045; 76775; 80053; 81001; 82550; 82570; 82728; 82962; 83036; 83615; 83735; 83880; 84156; 84300; 84443; 84484; 85025; 85379; 85610; 85652; 85730; 86141; 87040; 87086; 93306; 93886; 94660; 95819; 96365; G0378; J1815; J2405